=== PATIENT | male | born 1965 | race Caucasian/White ===

== ENCOUNTER 2023-05-08 11:26 | Outpatient (RCR) | payer BC, SELFPAY ==
[2023-05-08 09:08] LABS: % Basophils 1.1 % (0-2); % Eosinophils 4.7 % (0-6); % Immature Granulocytes 0.5 % (0-0.5); % Lymphocytes 21.7 % (20.5-51.1); Absolute Basophils 0.1 10^3/uL (0-0.2); Absolute Eosinophils 0.3 10^3/uL (0-0.7); Absolute Lymphocytes 1.4 10^3/uL (1.2-3.4); Absolute Monocytes 0.5 10^3/uL (0.1-0.6); Absolute Neutrophils 4.1 10^3/uL (1.4-6.5); Hemoglobin 16.3 g/dL (13.0-18.0); Mean Corp Hgb Conc. 34.7 g/dL (33.0-37.0); Mean Corpuscular Hgb 31.9 pg (27.0-31.0); Mean Platelet Volume 9.4 fL (7.4-10.4); Nucleated Red Blood Cells % 0 % (-); Platelet Count 188 10^3/uL (130-400); Red Blood Cell Count 5.11 10^6/uL (4.70-6.10); Red Cell Dist. Width 12.7 % (11.5-14.5); White Blood Cell Count 6.4 10^3/uL (4.8-10.8)
[2023-05-08 09:22] LABS: ALT (SGPT) 29 U/L (0-50); AST (SGOT) 25 U/L (17-59); Albumin 4.4 g/dl (3.5-5.0); Alkaline Phosphatase 61 U/L (38-126); Blood Urea Nitrogen 19 mg/dl (9-20); Calcium 9.3 mg/dl (8.4-10.2); Carbon Dioxide 21 mmol/L (22-30); Chloride 110 mmol/L (98-107); Glucose 120 mg/dl (70-99); Potassium 4.3 mmol/L (3.5-5.1); Sodium 138 mmol/L (135-145); Total Bilirubin 0.7 mg/dl (0.2-1.3); Total Protein 6.8 g/dl (6.3-8.2); eGFR > 60.00
[2023-05-08 09:51] LABS: CEA 3.11 ng/ml
== END 2023-06-04 23:59 | disposition home or self-care (01) ==
LOC: OID 11:26
PROVIDERS: ATTENDING PHYSICIAN Internal Medicine Hematology & Oncology
DX: C20 Malignant neoplasm of rectum (principal)
CPT/HCPCS: 80053; 82378; 85025

== ENCOUNTER → 2023-06-30 14:47 | Outpatient (REF) | payer BC, SELFPAY | LOC: MRI 3T 14:47 | PROVIDERS: ATTENDING PHYSICIAN Surgery; FAMILY PHYSICIAN Family Medicine | DX: C20 Malignant neoplasm of rectum (principal) | CPT/HCPCS: 72197; A9575 ==

== ENCOUNTER → 2023-07-29 06:28 | Day surgery (SDC) | payer BC, SELFPAY | LOC: GI 06:28 | PROVIDERS: ATTENDING PHYSICIAN Surgery | DX: Z12.11 Encounter for screening for malignant neoplasm of colon (principal); K57.30 Diverticulosis of large intestine without perforation or abscess without bleeding; K62.89 Other specified diseases of anus and rectum; D12.3 Benign neoplasm of transverse colon; D12.2 Benign neoplasm of ascending colon; K63.5 Polyp of colon; Z86.010 Personal history of colon polyps; Z85.048 Personal history of other malignant neoplasm of rectum, rectosigmoid junction, and anus | CPT/HCPCS: 45385; 45381; 45380; 88305 ==

== ENCOUNTER → 2023-08-07 08:57 | Outpatient (REF) | payer BC, SELFPAY | LOC: PET 08:57 | PROVIDERS: ATTENDING PHYSICIAN Internal Medicine Hematology & Oncology | DX: C20 Malignant neoplasm of rectum (principal) | CPT/HCPCS: 78815; A9552 ==

== ENCOUNTER 2023-10-19 17:32 | Emergency (ER) | payer BC, SELFPAY ==
[2023-10-19 17:49] VITALS: BP 142/103
[2023-10-19 18:08] LABS: % Basophils 0.8 % (0-2); % Eosinophils 4.9 % (0-6); % Immature Granulocytes 0.5 % (0-0.5); % Lymphocytes 29.7 % (20.5-51.1); % Monocytes 10.7 % (1.7-9.3); % Neutrophils 53.4 % (42.2-75.2); Absolute Basophils 0.1 10^3/uL (0-0.2); Absolute Eosinophils 0.4 10^3/uL (0-0.7); Absolute Lymphocytes 2.5 10^3/uL (1.2-3.4); Absolute Monocytes 0.9 10^3/uL (0.1-0.6); Absolute Neutrophils 4.5 10^3/uL (1.4-6.5); Hematocrit 44.9 % (39.0-52.0); Hemoglobin 16.3 g/dL (13.0-18.0); Mean Corp Hgb Conc. 36.3 g/dL (33.0-37.0); Mean Corpuscular Hgb 31.8 pg (27.0-31.0); Mean Corpuscular Volume 87.5 fL (80.0-94.0); Mean Platelet Volume 8.9 fL (7.4-10.4); Nucleated Red Blood Cells % 0 % (-); Platelet Count 208 10^3/uL (130-400); Red Blood Cell Count 5.13 10^6/uL (4.70-6.10); Red Cell Dist. Width 13.2 % (11.5-14.5); White Blood Cell Count 8.4 10^3/uL (4.8-10.8)
[2023-10-19 18:27] LABS: Blood Urea Nitrogen 18 mg/dl (9-20); Calcium 9.8 mg/dl (8.4-10.2); Carbon Dioxide 16 mmol/L (22-30); Chloride 109 mmol/L (98-107); Glucose 106 mg/dl (70-99); Sodium 137 mmol/L (135-145); eGFR > 60.00
--- NOTE | 2023-10-19 20:04 | ED.GENMED ---
History of Present Illness
General
Chief Complaint: Skin Problem
Time Seen by Provider: 10/19/23 19:34
History of Present Illness
History of Present Illness:
57-year-old male with history of hypertension presents to the emergency department for evaluation of right foot swelling and pain at the second toe. He was seen in emergency department in [place] 3 days ago and given IV antibiotics,
discharged on oral antibiotics which she has been taking without interruption. Denies any fevers or chills. Denies any trauma or wounds to the site. He does have gout on occasion in the right foot and states that he has been taking indomethacin
which typically is beneficial and pain is not improved. Did have a DVT study in the ER in [place] that was negative.
Past History
Past History
ED Past Medical History: Other (Borderline hypertension ); Negative CAD or NIDDM
ED Past Surgical History: None
Social History
Tobacco: Smoker
Alcohol: Occasional
Personal:
Family History
Family History: Negative Diabetes
Review of Systems
Review of Systems
Allergies reviewed?: Yes
All Other Systems: ROS reviewed and negative except as documented in HPI and ROS
Phy Exam
Physical Exam
Physical Exam:
GEN: Well appearing, NAD, WDWN
HEENT: Oral mucosa moist, no scleral icterus
Cardiac: Regular rate
Lung: No respiratory distress, no tachypnea
MSK: Severe erythema over the right second toe with no obvious open wounds or ulcerations. There is moderate swelling extending to the midfoot and ankle on the right. No calf edema or tenderness
Skin: Good color, no pallor or jaundice, no rashes
Neuro: AO x3, moves all extremities freely
Psych: Calm, cooperative
Course
Orders/Labs/Results
Orders:
Orders
10/19/23 18:02
Basic Metabolic Panel Urgent
Complete Blood Count/With Diff Urgent
10/19/23 20:03
Cephalexin Monohydrate [Keflex] 500 mg PO NOW STA
Abnormal Lab Results
10/19/23
18:02
MCH 31.8 H pg
(27.0-31.0)
Absolute Monos (auto) 0.9 H 10^3/uL
(0.1-0.6)
Monocytes % 10.7 H %
(1.7-9.3)
Chloride 109 H mmol/L
(98-107)
Carbon Dioxide 16 L mmol/L
(22-30)
Glucose 106 H mg/dl
(70-99)
10/19/23 18:02
10/19/23 18:02
Vital Signs
Initial and Last Documented VS:
Initial Vital Signs
Temp Pulse Resp BP Pulse Ox
98.1 F 85 16 142/103 98
10/19/23 17:49 10/19/23 17:49 10/19/23 17:49 10/19/23 17:49 10/19/23 17:49
Last Documented Vital Signs
Temp Pulse Resp BP Pulse Ox
98.1 F 79 16 176/99 96
10/19/23 17:49 10/19/23 20:19 10/19/23 20:19 10/19/23 20:19 10/19/23 20:19
MDM/Problems Addressed
MDM/Problems Addressed:
Will add cephalexin to the patient's current Bactrim therapy. He is clinically well and labs are reassuring. Discussed option for admission for IV antibiotics given failure of outpatient treatment however patient would prefer discharge home, this
is reasonable at this time however discussed strict ED return parameters
*Critical Care Note
Total Time (30-74mins, 75-104mins- exclusive of procedures): Not Applicable
ED Attending Note
-
Portions of this chart may have been created with voice recognition software.� Occasional wrong word or��sound alike� substitutions may have occurred due to the inherent limitations of voice recognition software.
Discharge Plan
Departure
Patient Disposition: Home (Routine Discharge)
Date of Disposition: 10/19/23
Time of Disposition: 20:05
Patient with high blood pressure during this ER visit?: No
Discharge Problem:
Cellulitis of second toe, right
Instructions: Cellulitis (Skin Infection), Adult (DC)
Prescriptions:
New
cephalexin 500 mg capsule
500 mg PO QID 10 Days Qty: 40 0RF
No Action
lisinopril 10 mg Tablet
10 mg PO DAILY
sulfamethoxazole-trimethoprim 800-160 mg Tablet
1 tab PO BID
Patient Comments:
10/19/23: filled 10/16/23, to take 1 tablet twice a day for 10 days
indomethacin 50 mg Capsule
50 mg PO DAILYPRN PRN (Reason: mild pain)
Referrals:
UNKNOWN - PT DOES,NOT KNOW [Family Provider] -
Activity Restrictions/Additional Instructions:
Keep elevated, return if symptoms do not improve in the next 3 days
Continue the Bactrim in addition to the cephalexin
Interventions
Interventions:
*Risk Screen - Suicide Last Done: 10/19/23 20:22
*General Assessment Last Done: 10/19/23 20:19
*Neglect/Abuse Screening Last Done: 10/19/23 20:22
ED- Fall Risk Assessment Last Done: 10/19/23 20:19
*ED COVID-19 Vaccine History Last Done: 10/19/23 20:22
*Nursing Disposition Last Done: 10/19/23 20:22
ED-Skin Assessment Last Done: 10/19/23 20:19
Discharge Date and Time
Discharge Date/Time: 10/19/23 20:22
Print Language: KOREAN
[2023-10-19] MEDS: KEFLEX 500 MG PO (20:07)
[2023-10-19 20:19] VITALS: BP 176/99
== END 2023-10-19 20:22 | disposition home or self-care (01) ==
LOC: EMR 17:32
PROVIDERS: Emergency Medicine; EMERGENCY PHYSICIAN Emergency Medicine
DX: L03.031 Cellulitis of right toe (principal); F17.200 Nicotine dependence, unspecified, uncomplicated
CPT/HCPCS: 99283; 80048; 85025

== ENCOUNTER 2023-10-24 07:48 | Emergency (ER) | payer BC, SELFPAY ==
[2023-10-24 07:50] VITALS: BP 166/104
--- NOTE | 2023-10-24 09:56 | ED.GENMED ---
History of Present Illness
<Og Mary PA-C - Last Filed: 10/24/23 12:44>
General
Chief Complaint: Swelling
Source: patient
Exam Limitations: none
Time Seen by Provider: 10/24/23 08:36
History of Present Illness
History of Present Illness:
58-year-old male presents with persistent swelling and discomfort to the right second toe. He stubbed his toe several days ago. He had initially a cellulitis to his right foot that was initially diagnosed in the [facility]. He was
started on Bactrim initially. He came here because he had persistent swelling to his foot with pain about 6 days ago and was started on Keflex. He notes improved swelling and redness to his foot but worsening pain and swelling to the right second
toe. He is not diabetic. He has chemo induced neuropathy. He denies fevers. No other complaints at this time. He does have a history of gout. He tried indomethacin for symptoms without any relief
Past History
<Og Mary PA-C - Last Filed: 10/24/23 12:44>
Past History
ED Past Medical History: Other (Borderline hypertension ); Negative CAD or NIDDM
ED Past Surgical History: None
Social History
Tobacco: Smoker
Alcohol: Occasional
Personal:
Family History
Family History: Negative Diabetes
Phy Exam
<Og Mary PA-C - Last Filed: 10/24/23 12:44>
Physical Exam
Physical Exam:
General: Well-appearing male no acute respiratory distress
HEENT: Normocephalic atraumatic
Heart: Regular rate and rhythm no murmur
Lungs: Clear no wheeze or rales
Musculoskeletal exam: Right second toe tender over the proximal phalanx and PIP joint. There is erythema and swelling surrounding this the right foot is slightly swollen
Vascular: 2+ dorsalis pedis pulse right foot with brisk cap refill to the toes
Neurologic: Good sensation right foot
Scores
<Og Mary PA-C - Last Filed: 10/24/23 12:44>
Heart Failure Risk
Heart Failure Risk Score: Not Applicable
Course
<Og Mary PA-C - Last Filed: 10/24/23 12:44>
Orders/Labs/Results
Orders:
Orders
10/24/23 07:56
CR Foot - Right Min 3 Views Urgent
Comment:
Reason For Exam: swelling
Vital Signs
Initial and Last Documented VS:
Initial Vital Signs
Temp Pulse Resp BP Pulse Ox
98.6 F 85 16 166/104 98
10/24/23 07:50 10/24/23 07:50 10/24/23 07:50 10/24/23 07:50 10/24/23 07:50
Last Documented Vital Signs
Temp Pulse Resp BP Pulse Ox
98 F 75 16 146/75 98
10/24/23 12:51 10/24/23 12:51 10/24/23 12:51 10/24/23 12:51 10/24/23 12:51
<Milan Devine DO - Last Filed: 10/24/23 14:06>
Orders/Labs/Results
Orders:
Orders
10/24/23 07:56
CR Foot - Right Min 3 Views Urgent
Comment:
Reason For Exam: swelling
Vital Signs
Initial and Last Documented VS:
Initial Vital Signs
Temp Pulse Resp BP Pulse Ox
98.6 F 85 16 166/104 98
10/24/23 07:50 10/24/23 07:50 10/24/23 07:50 10/24/23 07:50 10/24/23 07:50
Last Documented Vital Signs
Temp Pulse Resp BP Pulse Ox
98 F 75 16 146/75 98
10/24/23 12:51 10/24/23 12:51 10/24/23 12:51 10/24/23 12:51 10/24/23 12:51
<Og Mary PA-C - Last Filed: 10/24/23 12:44>
MDM/Problems Addressed
Differential Diagnosis Includes:
Persistent right foot pain particularly second toe pain. He recently did jam his toe. X-rays of the foot pending. I have personally visualized x-rays of the foot which are negative for acute bony abnormality of second toe. There is a radiopaque
foreign body noted over the MTP joint medially of the first toe. Upon inspection of the skin there is no open wound here or evidence of recent injury.
<Og Mary PA-C - Last Filed: 10/24/23 12:44>
*Critical Care Note
Total Time (30-74mins, 75-104mins- exclusive of procedures): Not Applicable
<Og Mary PA-C - Last Filed: 10/24/23 12:44>
Update Note
Update Note:
Patient reevaluated. X-rays reviewed. Sounds like infectious process improving however still has residual erythema pain and swelling to the right second toe. Question possible underlying inflammatory process. Will have patient continue his
Keflex and Bactrim until complete and add prednisone. Stable for discharge
ED Attending Note
<Og Mary PA-C - Last Filed: 10/24/23 12:44>
-
Portions of this chart may have been created with voice recognition software.� Occasional wrong word or��sound alike� substitutions may have occurred due to the inherent limitations of voice recognition software.
<Milan Devine DO - Last Filed: 10/24/23 14:06>
ED Attending Note
Patient seen and examined by attending physician: Yes
I performed the substantive portion of visit, reviewed & personally made and approve the management plan that is documented in note by myself or HELDER.: Yes
ED Attending Note:
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 Patient initially thought he had
gout a couple weeks ago started on Indocin without improvement. Patient was then started on Bactrim and had Keflex added 5 days ago. Patient is concerned about second right toe. Patient denies fever or chills. Patient does have a history of
gout. On physical exam patient has a swollen foot. X-rays are reviewed. Will start the patient on anti-inflammatories and to finish antibiotics.
Discharge Plan
Departure
Patient Disposition: Home (Routine Discharge)
Date of Disposition: 10/24/23
Time of Disposition: 12:42
Patient with high blood pressure during this ER visit?: No
Discharge Problem:
Foot and Toe swelling
Instructions: Cellulitis (Skin Infection), Adult ED
Prescriptions:
New
prednisone 20 mg tablet
40 mg PO DAILY 5 Days Qty: 10 0RF
No Action
lisinopril 10 mg Tablet
10 mg PO DAILY
sulfamethoxazole-trimethoprim 800-160 mg Tablet
1 tab PO BID
Patient Comments:
10/19/23: filled 10/16/23, to take 1 tablet twice a day for 10 days
indomethacin 50 mg Capsule
50 mg PO DAILYPRN PRN (Reason: mild pain)
cephalexin 500 mg capsule
500 mg PO QID 10 Days Qty: 40 0RF
Referrals:
Jacob Boone MD [Family Provider] -
Activity Restrictions/Additional Instructions:
Finish antibiotics until complete. Take prednisone as directed. Keep elevated. Return if worse otherwise follow-up with family doctor
Interventions
Interventions:
*Risk Screen - Suicide Last Done: 10/24/23 07:50
*General Assessment Last Done: 10/24/23 07:50
*Neglect/Abuse Screening Last Done: 10/24/23 07:50
ED- Fall Risk Assessment Last Done: 10/24/23 09:52
*ED COVID-19 Vaccine History Last Done: 10/24/23 07:50
*Nursing Disposition Last Done: 10/24/23 12:51
ED- Cardiac Assessment Last Done: 10/24/23 09:52
ED- Pulmonary Assessment Last Done: 10/24/23 09:52
ED-Skin Assessment Last Done: 10/24/23 09:52
Discharge Date and Time
Discharge Date/Time: 10/24/23 12:56
Print Language: NAURUAN
[2023-10-24 12:51] VITALS: BP 146/75
== END 2023-10-24 12:56 | disposition home or self-care (01) ==
LOC: EMR 07:48
PROVIDERS: EMERGENCY PHYSICIAN Emergency Medicine; FAMILY PHYSICIAN Family Medicine
DX: R22.41 Localized swelling, mass and lump, right lower limb (principal); G62.0 Drug-induced polyneuropathy; F17.200 Nicotine dependence, unspecified, uncomplicated
CPT/HCPCS: 99283; 73630

== ENCOUNTER 2023-11-18 09:00 | Day surgery (SDC) | payer BC, SELFPAY ==
[2023-11-18 11:46] VITALS: BMI 35.3
[2023-11-18 11:50] VITALS: BP 127/86
[2023-11-18 12:47] VITALS: BP 99/66
[2023-11-18 13:00] VITALS: BP 105/74
[2023-11-18 13:15] VITALS: BP 115/75
== END 2023-11-18 14:00 | disposition home or self-care (01) ==
LOC: GI 09:00
PROVIDERS: ATTENDING PHYSICIAN Surgery
DX: Z12.11 Encounter for screening for malignant neoplasm of colon (principal); K57.30 Diverticulosis of large intestine without perforation or abscess without bleeding; K62.89 Other specified diseases of anus and rectum; Z85.048 Personal history of other malignant neoplasm of rectum, rectosigmoid junction, and anus
CPT/HCPCS: 45330

== ENCOUNTER → 2024-02-08 09:38 | Outpatient (REF) | payer BC, SELFPAY | LOC: PET 09:38 | PROVIDERS: ATTENDING PHYSICIAN Internal Medicine Hematology & Oncology | DX: C20 Malignant neoplasm of rectum (principal) | CPT/HCPCS: 78815; A9552 ==

== ENCOUNTER → 2024-03-31 07:33 | Outpatient (REF) | payer BC, SELFPAY | LOC: MRI 3T 07:33 | PROVIDERS: ATTENDING PHYSICIAN Surgery; REFERRING PHYSICIAN Internal Medicine Hematology & Oncology | DX: Z85.048 Personal history of other malignant neoplasm of rectum, rectosigmoid junction, and anus (principal) | CPT/HCPCS: 72197; A9575 ==

== ENCOUNTER 2024-04-20 06:15 | Day surgery (SDC) | payer BC, SELFPAY | END 2024-04-20 09:29 | disposition home or self-care (01) | LOC: GI 06:15 | PROVIDERS: ATTENDING PHYSICIAN Surgery | DX: K62.89 Other specified diseases of anus and rectum (principal); Z85.048 Personal history of other malignant neoplasm of rectum, rectosigmoid junction, and anus | CPT/HCPCS: 45330 ==

== ENCOUNTER 2024-04-24 07:56 | Emergency (ER) | payer BC, SELFPAY ==
[2024-04-24 07:57] VITALS: BP 149/100
[2024-04-24 08:05] VITALS: BMI 35.6
--- NOTE | 2024-04-24 09:38 | ED.GENMED ---
History of Present Illness
General
Chief Complaint: DVT/Possible Blood Clot
Source: patient
Time Seen by Provider: 04/24/24 08:31
History of Present Illness
History of Present Illness:
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
the medial aspect of the right foot/ankle that he noticed over the last 2 days. Patient states he is overall unsure as to how this occurred, denies any trauma or excessive use of the foot/ankle. He denies any fevers or infectious symptoms. Did
not take anything for symptoms prior to arrival. Notes the history of chronic neuropathy and states the pain is worse presently. Not take anything for the pain and is declining anything for the pain. No use of anticoagulants. No other concerns
at this time.
Past History
Past History
ED Past Medical History: Cancer, HTN and Other (Borderline hypertension ); Negative CAD or NIDDM
ED Past Surgical History: Orthopedic
Social History
Tobacco: Smoker
Alcohol: Occasional
Drug: None
Personal:
Living: with family
Family History
Family History: Negative Diabetes
Review of Systems
Review of Systems
All Other Systems: ROS reviewed and negative except as documented in HPI and ROS
Phy Exam
Physical Exam
Physical Exam:
GENERAL: Alert , in no apparent distress
EYE: conjunctiva clear
Head: Normocephalic atraumatic
NECK: Supple,
ENT: mmm.
LUNGS: no acute respiratory distress
NEUROLOGICAL: Alert and oriented
SKIN: Warm and dry, 2.5cm area of mild erythema to medial aspect of right foot around the calcaneus and extending proximally towards the ankle, hot to the touch, tender to palpation
MUSCULOSKELETAL: well perfused. easily palpable pedal and tibial pulse, CR < 2 sec
PSYCH: Normal and appropriate interaction.
Scores
Heart Failure Risk
Heart Failure Risk Score: Not Applicable
Heart Score for Chest Pain Patients
STEMI patient?: Not applicable
Withdrawal Assessment of Alcohol
Withdrawal Assessment Completed?: Not applicable
Course
Orders/Labs/Results
Orders:
Orders
04/24/24 08:05
US Periph Venous LOWER Ext RT Urgent
Comment:
Reason For Exam: pain
Vital Signs
Initial and Last Documented VS:
Initial Vital Signs
Temp Pulse Resp BP Pulse Ox
97.7 F 88 18 149/100 98
04/24/24 07:57 04/24/24 07:57 04/24/24 07:57 04/24/24 07:57 04/24/24 07:57
Last Documented Vital Signs
Temp Pulse Resp BP Pulse Ox
97.7 F 67 18 139/87 97
04/24/24 07:57 04/24/24 09:39 04/24/24 09:39 04/24/24 09:39 04/24/24 09:39
MDM/Problems Addressed
Differential Diagnosis Includes:
cellulitis, DVT, phlebitis, tendonitis, arthritis, gout
MDM/Problems Addressed:
58-year-old male presenting to the emergency department for evaluation of right lower extremity pain and small area of erythema over the foot/ankle that he noticed over the last 2 days. History of cellulitis to the right lower extremity 6 to 7
months ago treated with oral antibiotics. Patient is at elevated risk for DVT given his history of smoking and previous history of colon cancer. Ultrasound ordered to rule out DVT although less suspicious for this diagnosis. Will likely treat
with oral antibiotics for possible early cellulitis. Disposition pending
*Radiology
Radiology exam reviewed: radiology read reviewed
*Pulse Oximetry
Patient hypoxic: no
*Critical Care Note
Total Time (30-74mins, 75-104mins- exclusive of procedures): Not Applicable
Patient Management
Escalation/DeEscalation of care consider admission/obs:
Patient's ultrasound is negative for DVT or phlebitis. Prescription for cephalexin sent to pharmacy. NSAIDs/Tylenol as needed for pain. Stable for discharge home.
ED Attending Note
-
Portions of this chart may have been created with voice recognition software.� Occasional wrong word or��sound alike� substitutions may have occurred due to the inherent limitations of voice recognition software.
Discharge Plan
Departure
Patient Disposition: Home (Routine Discharge)
Date of Disposition: 04/24/24
Time of Disposition: 09:38
Patient with high blood pressure during this ER visit?: Yes
Discharge Problem:
Cellulitis of leg, right
Instructions: Cellulitis (Skin Infection), Adult (DC)
Prescriptions:
New
cephalexin 500 mg tablet
500 mg PO BID 10 Days Qty: 20 0RF
No Action
lisinopril 10 mg Tablet
10 mg PO DAILY
Fleet Enema 19-7 gram/118 mL Enema
118 ml [place] .PERPROTOCOL
indomethacin 50 mg Capsule
50 mg PO DAILYPRN PRN (Reason: mild pain)
Referrals:
Rocio Corona PA [Family Provider] -
Interventions
Interventions:
*Risk Screen - Suicide Last Done: 04/24/24 07:57
*General Assessment Last Done: 04/24/24 07:57
*Neglect/Abuse Screening Last Done: 04/24/24 07:57
ED- Fall Risk Assessment Last Done: 04/24/24 08:05
*ED COVID-19 Vaccine History Last Done: 04/24/24 08:05
*Nursing Disposition Last Done: 04/24/24 09:44
ED- Cardiac Assessment Last Done: 04/24/24 08:05
ED- Pulmonary Assessment Last Done: 04/24/24 08:05
ED-Skin Assessment Last Done: 04/24/24 08:05
Discharge Date and Time
Discharge Date/Time: 04/24/24 09:45
Print Language: NEPALI
[2024-04-24 09:39] VITALS: BP 139/87
== END 2024-04-24 09:45 | disposition home or self-care (01) ==
LOC: EMR 07:56
PROVIDERS: EMERGENCY PHYSICIAN Student in an Organized Health Care Education/Training Program; FAMILY PHYSICIAN Physician Assistant
DX: L03.115 Cellulitis of right lower limb (principal); I10 Essential (primary) hypertension; F17.200 Nicotine dependence, unspecified, uncomplicated
CPT/HCPCS: 99284; 93971

== ENCOUNTER 2024-10-12 06:15 | Day surgery (SDC) | payer BC, SELFPAY ==
[2024-10-12 13:22] VITALS: BMI 35.5
[2024-10-12 13:26] VITALS: BMI 35.5
[2024-10-12 13:27] VITALS: BP 145/99
--- NOTE | 2024-10-12 14:21 | PTCARENOTE ---
Report given to Zina RN at 1415.
--- NOTE | 2024-10-12 14:22 | PTCARENOTE ---
Smoking cessation done with patient.
[2024-10-12 15:48] VITALS: BP 119/77
[2024-10-12 16:00] VITALS: BP 122/81
[2024-10-12 16:15] VITALS: BP 128/82
[2024-10-12 16:30] VITALS: BP 133/79
== END 2024-10-12 16:47 | disposition home or self-care (01) ==
LOC: GI 06:15
PROVIDERS: ATTENDING PHYSICIAN Surgery
DX: Z12.11 Encounter for screening for malignant neoplasm of colon (principal); K57.30 Diverticulosis of large intestine without perforation or abscess without bleeding; K62.89 Other specified diseases of anus and rectum; D12.0 Benign neoplasm of cecum; D12.3 Benign neoplasm of transverse colon; K63.5 Polyp of colon; Z85.048 Personal history of other malignant neoplasm of rectum, rectosigmoid junction, and anus
CPT/HCPCS: 45385; 45380; 88305